=== PATIENT | male | born 1990 | race Caucasian/White ===

== ENCOUNTER 2021-09-05 21:40 | Emergency (ER) | payer MEDICAID, SELFPAY ==
[2021-09-05 21:42] VITALS: BP 164/92; PULSE 98; RESP 18; TEMP 36.7; O2SAT 94; BMI 25.0
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
[2021-09-05] MEDS: LORazepam 2 mg/mL INJ 1 mL 1 MG IVP (22:09)
[2021-09-05 22:30] LABS: Anion Gap 37.4 (5-19); Blood Urea Nitrogen 18 mg/dL (6-20); Calcium 9.1 mg/dL (8.5-10.5); Carbon Dioxide 10 mmol/L (22-29); Chloride 92 mmol/L (98-107); Glucose 236 mg/dL (65-115); Osmolality Calculated 292 mOsm/kg (285-295); Potassium 3.4 mmol/L (3.5-5.1); Sodium 136 mmol/L (136-145)
[2021-09-05] MEDS: sodium chloride 0.9% 1,000 ML 999 ML IV (22:47)
[2021-09-05 23:44] LABS: ABG PCO2 40.9 mmHg (35-45); ABG PH Result 7.37 (7.35-7.45); Arterial Blood Gas Hematocrit 43.1 % (42-52); Base Excess ABG -1.6 mmol/L (-2.0-2.0); Blood Gas Allen Test Pos; Blood Gas Sample Site Radial, right; Blood Gas Sample Type Arterial; HCO3 ABG 23.6 mmol/L (22-26); Oxygen Device ROOM AIR; PO2 ABG 83.2 mmHg (80.0-100.0)
[2021-09-06 00:08] VITALS: BP 123/77; PULSE 95; RESP 16
[2021-09-06 00:18] LABS: Anion Gap 16.3 (5-19); Blood Urea Nitrogen 17 mg/dL (6-20); Calcium 7.1 mg/dL (8.5-10.5); Carbon Dioxide 20 mmol/L (22-29); Chloride 104 mmol/L (98-107); Glomerular Filtration Rate 134.3 mL/min (90-130); Glucose 127 mg/dL (65-115); Osmolality Calculated 287 mOsm/kg (285-295); Potassium 3.3 mmol/L (3.5-5.1); Sodium 137 mmol/L (136-145)
[2021-09-06 00:32] VITALS: BP 116/67
== END 2021-09-06 00:33 | disposition home or self-care (01) ==
PROVIDERS: Emergency Provider Emergency Medicine
DX: G40.89 Other seizures (principal); F17.210 Nicotine dependence, cigarettes, uncomplicated
CPT/HCPCS: 36600; 70450; 80048; 82803; 96365; 96375; 99284; J1953; J2060; J7030